=== PATIENT | male | born 1995 | race Caucasian/White ===

== ENCOUNTER 2021-04-12 21:01 | Emergency (ER) | payer OTHER ==
[2021-04-14 13:07] LABS: C.TRACHOMATIS BY TMA Negative (Negative); N.GONORRHOEAE BY TMA Negative (Negative)
== END 2021-04-12 22:28 | disposition home or self-care (01) ==
LOC: MW.ED 21:01
DX: R30.0 Dysuria (principal); Z88.0 Allergy status to penicillin
CPT/HCPCS: 81003; 87491; 87591; 99283